=== PATIENT | female | born 1955 | race Caucasian/White ===

== ENCOUNTER 2019-04-13 09:38 | Day surgery (SDC) | payer OTHER ==
[~2019-04-13] VITALS: Ht 157.5 cm; Wt 62.2 kg
[2019-04-13 10:44] VITALS: Ht 157.5 cm; Wt 62.2 kg
[2019-04-13 10:48] VITALS: BP 132/60; PULSE 81; RESP 16
[2019-04-13] MEDS ORDERED: CO-Q10 (10:54)
[2019-04-13] MEDS ORDERED: ASA (10:54)
[2019-04-13] MEDS ORDERED: METFORMIN (10:54)
[2019-04-13] MEDS ORDERED: CRESTOR (10:54)
[2019-04-13] MEDS ORDERED: LEVOTHYROXINE (10:54)
[2019-04-13] MEDS ORDERED: VITAMIN D + CALCIUM (10:54)
--- NOTE | 2019-04-13 11:21 | PREAC ---
Date/Time of Note Date/Time of Note DATE: 04/13/19 TIME: : Anesthesia Eval and Record Evaluation Time Pre-Procedure Interview DATE: 04/13/19 TIME: 11:19 Age 63 Sex female NPO: 8 hrs Preoperative diagnosis dysphagia / colon CA screening Planned procedure EGD / colonoscopy Past Medical History Past Medical History: Includes Cardio: Dyslipidemia Endo: Diabetes, Hypothyroid Surgery & Anesthesia Issues No known issue Meds Anticoagulation: No Beta Annita within 24 hr: No Reason Beta Annita not given: Pt. not on B-Annita Reported Medications [Vitamin D + Calcium] No Conflict Check 04/13/19 [Levothyroxine] No Conflict Check 04/13/19 [Crestor] No Conflict Check 04/13/19 [Co-Q10] No Conflict Check 04/13/19 [Asa] No Conflict Check 04/13/19 [Metformin] No Conflict Check 04/13/19 Meds reviewed: Yes Allergies Coded Allergies: No Known Allergy (Unverified , 04/13/19) Allergies Reviewed: Yes Labs/Studies Labs Reviewed: Other (NA) test: N/A Pre-procedure Exam Last vitals Vital Signs Date Temp Pulse Resp B/P (MAP) Pulse Ox O2 O2 Flow FiO2 Time Delivery Rate 04/13/19 98.8 81 16 132/60 98 Room Air 10:48 (84) Airway: Adequate mouth opening Mallampati: Mallampati II Teeth: Normal Lung: Normal Heart: Normal ASA Physical Status ASA physical status: 2 Emergency: None Planned Anesthetic General/MAC: MAC Pre-operative Attestations Prior to commencing anesthesia and surgery, the patient was re-evaluated, there was verification of: *The patient's identity *The results of appropriate recent lab work and preoperative vital signs *The above evaluation not changing prior to induction *Anesthetic plan, risk benefits, alternative and complications discussed with patient/family; questions answered; patient/family understands, accepts and wishes to proceed. JUAN DAVALOS Apr 13, 2019 11:21
[2019-04-13] MEDS ORDERED: PROPOFOL 40 ML ONE (11:22)
[2019-04-13] MEDS ORDERED: LIDOCAINE 100 MG SYRINGE ONE (11:22)
--- NOTE | 2019-04-13 12:01 | PAC ---
Date/Time of Note Date/Time of Note DATE: 04/13/19 TIME: 12:00 Post-Anesthesia Notes Post-Anesthesia Note Last documented vital signs Vital Signs Date Temp Pulse Resp B/P (MAP) Pulse Ox O2 O2 Flow FiO2 Time Delivery Rate 04/13/19 98.8 81 16 132/60 98 Room Air 10:48 (84) Activity: WNL Respiratory function: WNL Cardiovascular function: WNL Mental status: Baseline Pain reasonably controlled: Yes Hydration appropriate: Yes Nausea/Vomiting absent: Yes Comments BP:112/56, P:78, Spo2:100%, T:98,9 SILVIA MCKAY MD Apr 13, 2019 12:01
[2019-04-13 12:32] VITALS: BP 129/67; RESP 16
== END 2019-04-13 14:17 | disposition home or self-care (01) ==
LOC: GIL 09:38
PROVIDERS: ATTEND Internal Medicine Gastroenterology
DX: Z12.11 Encounter for screening for malignant neoplasm of colon (principal); D12.5 Benign neoplasm of sigmoid colon; D12.4 Benign neoplasm of descending colon; K29.00 Acute gastritis without bleeding; K31.9 Disease of stomach and duodenum, unspecified; E78.5 Hyperlipidemia, unspecified; E11.9 Type 2 diabetes mellitus without complications; E03.9 Hypothyroidism, unspecified; Z79.84 Long term (current) use of oral hypoglycemic drugs
CPT/HCPCS: 43239; 45380; 45385; 82962; 88305; 88312; 88313; J2001; Z7610